=== PATIENT | male | born 1950 | race Caucasian/White ===

== ENCOUNTER 2016-08-20 11:30 | Outpatient (RCR) | payer BC ==
[2015-08-20 13:25] VITALS: BP 169/94
[~2016-08-20 11:30] MED LIST: CARDIZEM CD 18180 MG PO; ZYLOPRIM 100MG100 MG PO
== END 2016-09-04 12:32 | disposition home or self-care (01) ==
LOC: PT 11:30
DX: Z47.1 Aftercare following joint replacement surgery (principal); Z96.652 Presence of left artificial knee joint

== ENCOUNTER → 2017-06-30 | Outpatient (CLI) | payer MEDICARE, BC ==
[2015-08-20 13:25] VITALS: BP 169/94
== END ==
LOC: RAD 12:00
DX: R53.83 Other fatigue (principal)

== ENCOUNTER 2017-08-11 08:30 | Outpatient (RCR) | payer MEDICARE, BC ==
[2015-08-20 13:25] VITALS: BP 169/94
== END 2017-08-11 09:00 | disposition home or self-care (01) ==
LOC: PT 08:30
DX: Z47.89 Encounter for other orthopedic aftercare (principal)
CPT/HCPCS: G8978-GP; G8979-GP

== ENCOUNTER → 2018-07-05 | Day surgery (SDC) | payer MEDICARE, BC ==
[2015-08-20 13:25] VITALS: BP 169/94
== END ==
LOC: MSO 09:46
DX: Z12.11 Encounter for screening for malignant neoplasm of colon (principal); K63.5 Polyp of colon; Z86.010 Personal history of colon polyps; K57.30 Diverticulosis of large intestine without perforation or abscess without bleeding; Z79.899 Other long term (current) drug therapy; I10 Essential (primary) hypertension; E78.5 Hyperlipidemia, unspecified; Z87.891 Personal history of nicotine dependence; K21.9 Gastro-esophageal reflux disease without esophagitis; M10.9 Gout, unspecified; Z85.528 Personal history of other malignant neoplasm of kidney; Z90.5 Acquired absence of kidney
CPT/HCPCS: 00811; J2704; J7120

== ENCOUNTER 2021-08-18 09:00 | Outpatient (RCR) | payer MEDICARE, BC | END 2021-09-15 | disposition home or self-care (01) | LOC: PT | DX: M25.511 Pain in right shoulder (principal) ==

== ENCOUNTER 2021-09-18 13:00 | Outpatient (RCR) | payer MEDICARE, BC | END 2021-10-13 | disposition home or self-care (01) | LOC: PT | DX: M25.511 Pain in right shoulder (principal) ==

== ENCOUNTER 2021-10-16 10:00 | Outpatient (RCR) | payer MEDICARE, BC | END 2021-11-13 | disposition home or self-care (01) | LOC: PT | DX: M25.511 Pain in right shoulder (principal) ==

== ENCOUNTER 2021-11-17 09:57 | Outpatient (RCR) | payer MEDICARE, BC | END 2021-11-17 17:00 | disposition still patient (30) | LOC: PT 09:57 | DX: M25.511 Pain in right shoulder (principal) ==

== ENCOUNTER → 2024-06-12 | Outpatient (CLI) | payer MEDICARE, BC | LOC: RAD 15:10 | DX: Z01.818 Encounter for other preprocedural examination (principal) ==